=== PATIENT | male | born 1960 | race Caucasian/White ===

== ENCOUNTER 2017-03-25 11:10 | Observation (INO) | payer OTHER ==
[2017-03-25] MEDS ORDERED: ONDANSETRON 4 MG/2 ML VIAL IVP PRN (13:21)
[2017-03-25] MEDS ORDERED: ACETAMINOPHEN 325 MG TAB PO PRN (13:21)
[2017-03-25] MEDS ORDERED: ONDANSETRON DISINTEGRATING 4 MG TAB PO PRN (13:21)
[2017-03-25] MEDS ORDERED: diphenhydrAMINE 25 MG CAP PO ONE (13:37)
[2017-03-25] MEDS ORDERED: NS 1,000 ML IV ONE (13:37)
--- NOTE | 2017-03-25 14:09 | PDCARPN ---
Cardiology Progress Note Chief Complaint: SSS/ symptomatic bradycardia Assessment/Plan: Assessment: 56-y/o M direct admitted from our office for syncope/bradycardia/frequent PVCs. Has PMH of MV repair in 2010 (done in [place]), mod MR, mod-severe AR. #. symptomatic bradycardia/bradycardia/PVCs: scheduled for PPM in AM NPO after midnight but OK to talke meds #. VHD: followed by Dr. Dailey #. DVT ppx: low risk #. LOS: >48 hours/ pt being monitored for bradycardia; high risk for syncope Plan: PPM in AM 03/25/17 14:05 Subjective: No complaints. Reviewed/Discussed With: hospitalist Objective: Vital Signs (8 Hrs) Temp Pulse Resp BP Pulse Ox 03/25/17 12:01 98.6 F 56 L 18 127/86 H 95 Intake/Output (24 Hrs) 03/24/17 03/25/17 03/26/17 05:59 05:59 05:59 Other: Weight 88.5 kg ICD10 Worksheet Patient Problems: Problems Problem Status Onset Sick sinus syndrome Acute
--- NOTE | 2017-03-25 14:11 | CPEKG ---
Heart Rate: 92 RR Interval: 652 P-R Interval: 196 QRSD Interval: 98 QT Interval: 312 QTC Interval: 386 P [place]: 10 QRS [place]: 64 T Wave [place]: 65 EKG Severity - ABNORMAL ECG - EKG Impression: SINUS RHYTHM EKG Impression: VENTRICULAR BIGEMINY EKG Impression: BORDERLINE T ABNORMALITIES, ANT-LAT LEADS Electronically Signed By: Kalia Jenkins 25-Mar-2017 17:17:28
[2017-03-25 14:34] LABS: % IMMATURE GRANULYOCYTES 0.2 % (0.0-1.1); ABSOLUTE IMMATURE GRANULOCYTES 0.01 10^3/uL (0.00-0.10); ADD DIFF? NO; ADD MORPH? NO; ADD SCAN? NO; ATYPICAL LYMPHOCYTE FLAG 0 (0-99); FRAGMENT RBC FLAG 0 (0-99); HEMATOCRIT 41.6 % (40.0-51.0); HEMOGLOBIN 14.6 g/dL (13.7-17.5); LEFT SHIFT FLG 0 (0-99); LIPEMIA HEMOLYSIS FLAG 90 (0-99); MEAN CELL HEMOGLOBIN 32.1 pg (27.9-34.1); MEAN CELL HEMOGLOBIN CONCENTR. 35.1 g/dL (32.4-36.7); MEAN CELL VOLUME 91.4 fL (81.5-99.8); MEAN PLATELET VOLUME 10.7 fL (8.7-11.7); PLATELET CLUMPS FLAG 10 (0-99); PLATELET COUNT 172 10^3/uL (150-400); RED BLOOD CELL COUNT 4.55 10^6/uL (4.40-6.38); RED CELL DISTRIBUTION WIDTH 12.3 % (11.5-15.2)
[2017-03-25 14:39] LABS: INR 1.12 (0.83-1.16); PROTIME(PATIENT) 14.3 SEC (12.0-15.0)
[2017-03-25 14:44] LABS: ANION GAP 11 mEq/L (8-16); CALCIUM 9.3 mg/dL (8.5-10.4); CARBON DIOXIDE 22 mEq/l (22-31); CHLORIDE 107 mEq/L (97-110); CREATININE 0.8 mg/dL (0.7-1.3); GLOMERULAR FILTRATION RATE > 60; GLUCOSE 101 mg/dL (70-100); POTASSIUM 4.3 mEq/L (3.5-5.2); SODIUM 140 mEq/L (134-144)
[2017-03-25] MEDS: CARVEDILOL 6.25 MG TAB PO SCH (18:21)
[2017-03-25] MEDS: RANOLAZINE 500 MG TAB.ER PO SCH (21:17)
[2017-03-25] MEDS: traZODone 50 MG TAB PO SCH (21:18)
[2017-03-26] MEDS ORDERED: NS 1,000 ML IV ONE (06:00)
[2017-03-26] MEDS ORDERED: diphenhydrAMINE 25 MG CAP PO ONE (06:00)
[2017-03-26] MEDS ORDERED: DIAZEPAM 5 MG TAB PO ONE (08:00)
[2017-03-26] MEDS ORDERED: BACITRACIN IRRIGATION/NS 50,000 UNITS/1,000 ML BTL IRR ONE (08:00)
[2017-03-26] MEDS: CARVEDILOL 6.25 MG TAB PO SCH ×2 (09:03→17:51)
[2017-03-26] MEDS ORDERED: ceFAZolin 2 GM/DEXTROSE 100 ML IV ONE (10:00)
[2017-03-26] MEDS ORDERED: LIDOCAINE 1% 300 MG/30 ML SDV ONE ×2 (10:48→15:23)
[2017-03-26] MEDS ORDERED: fentaNYL 100 MCG/2 ML INJ ONE ×2 (10:48→11:45)
[2017-03-26] MEDS ORDERED: MIDAZOLAM 2 MG/2 ML VIAL ONE ×2 (10:49→11:45)
[2017-03-26] MEDS ORDERED: BUPIVACAINE 0.5% 30 ML SDV ONE (10:49)
[2017-03-26] MEDS ORDERED: IOPAMIDOL (ISOVUE-300) 100 ML BTL ONE (10:53)
--- NOTE | 2017-03-26 12:50 | CPEKG ---
Heart Rate: 55 RR Interval: 1091 P-R Interval: 212 QRSD Interval: 92 QT Interval: 452 QTC Interval: 433 P [place]: -15 QRS [place]: 64 T Wave [place]: 51 EKG Severity - ABNORMAL ECG - EKG Impression: SINUS RHYTHM EKG Impression: FIRST DEGREE AV BLOCK EKG Impression: FIRST DEGREE AVB IS NEW IN COMPARISON TO PRIOR Electronically Signed By: Kalia Jenkins 26-Mar-2017 13:27:01
[2017-03-26] MEDS: RANOLAZINE 500 MG TAB.ER PO SCH ×2 (14:09→21:27)
[2017-03-26] MEDS: FLUoxetine 20 MG CAP PO SCH (14:09)
[2017-03-26] MEDS: LISINOPRIL 2.5 MG TAB PO SCH (14:10)
--- NOTE | 2017-03-26 15:40 | EPPROC ---
Electrophysiology Procedure Note: PROCEDURE PERFORMED: 1. Implantation of an A/V Pacemaker 2. Subclavian vein angiography 3. Fluoroscopy INDICATION: Sick sinus syndrome Near syncope PROCEDURE NOTE: Patient presented to the cardiac catheterization laboratory in a fasting, post absorptive state . CCL RN administered sedation. The left infraclavicular area was prepped and draped in the usual sterile fashion. Lidocaine plus bupivacaine was used for local anesthesia. Left subclavian venography was performed by injection of iodinated contrast into the left antecubital vein. This was done to assure patency of the vein and also to assess for any anatomical aberrations. Using a combination of blunt and sharp dissection and electrocautery, the dissection was carried down to the prepectoral fascia. A pocket was made in this anatomical plane. All bleeding was controlled with electrocautery. The pocket was packed with gauze soaked in antibiotic solution. Fluoroscopy was utilized during the entire procedure for venous access and placement of the leads. Using a direct stick technique the left extrathoracic axillary vein was accessed with 2 sticks using the modified Seldinger technique. Placement of the guidewires into the venous system was confirmed by low-pressure blood return and also by visualizing the guidewires advancing into the inferior vena cava. A purse string suture was applied around the guidewires. Two #7 [place] sheaths were advanced under fluoroscopic guidance over the guidewire. An active fixation ventricular lead was advanced into the right ventricular apex and screwed in place. An active fixation atrial lead was advanced into the right atrial appendage and screwed in place. The peel away sheaths were removed. Pacing thresholds, sensing parameters and lead impedances were measured. There was no diaphragmatic stimulation at maximum output. The leads were sutured to the prepectoral fascia with 3 nonabsorbable sutures each. The pocket was again inspected for any bleeding. The leads were attached to the pacemaker securely. The pacemaker was inserted into the pocket and secured in place with a nonabsorbable suture. Fluoroscopy was performed in HO and HUNG[place]IAN planes to verify right-sided placement of the leads. Also fluoroscopy of the pacemaker pocket was performed. The pacemaker pocket was closed in 3 layers with absorbable monocryl sutures and betito. Appropriate dressing was applied. The patient left the cardiac catheterization laboratory in stable condition. Serial Numbers: 1. Device: Biotronik Edora 8DRT SN [id number] 2. Atrial Lead: Biotronik Solia S53 SN [id number] 3. Ventricular Lead: Biotronik Solia S60 SN [id number] Stimulation Thresholds & Impedance Measurements: 1. Atrial Lead P 5.1 mV 0.5 V 0.4 ms 526 ohm 2. Ventricular Lead R 4 MV 0.6 V 0.5 ms 604 ohm David Pacing Parameters 1. Pacing mode: DDDCLS 2. Lower rate: 50ppm 3. Upper tracking rate: 140 ppm 4. Upper sensor rate: 140 ppm Patient Problems: Problems Problem Status Onset Sick sinus syndrome Acute
[2017-03-26] MEDS: traZODone 50 MG TAB PO SCH (21:27)
[2017-03-27 03:46] VITALS: O2SAT 94
[2017-03-27 05:00] LABS: % IMMATURE GRANULYOCYTES 0.4 % (0.0-1.1); ABSOLUTE IMMATURE GRANULOCYTES 0.03 10^3/uL (0.00-0.10); ADD DIFF? NO; ADD MORPH? NO; ADD SCAN? NO; ATYPICAL LYMPHOCYTE FLAG 0 (0-99); FRAGMENT RBC FLAG 0 (0-99); HEMATOCRIT 41.1 % (40.0-51.0); HEMOGLOBIN 14.3 g/dL (13.7-17.5); LEFT SHIFT FLG 0 (0-99); LIPEMIA HEMOLYSIS FLAG 90 (0-99); MEAN CELL HEMOGLOBIN 32.1 pg (27.9-34.1); MEAN CELL HEMOGLOBIN CONCENTR. 34.8 g/dL (32.4-36.7); MEAN CELL VOLUME 92.2 fL (81.5-99.8); MEAN PLATELET VOLUME 10.8 fL (8.7-11.7); PLATELET CLUMPS FLAG 0 (0-99); PLATELET COUNT 149 10^3/uL (150-400); RED BLOOD CELL COUNT 4.46 10^6/uL (4.40-6.38); RED CELL DISTRIBUTION WIDTH 12.3 % (11.5-15.2)
[2017-03-27 05:24] LABS: ANION GAP 9 mEq/L (8-16); CALCIUM 9.1 mg/dL (8.5-10.4); CARBON DIOXIDE 25 mEq/l (22-31); CHLORIDE 104 mEq/L (97-110); CREATININE 0.9 mg/dL (0.7-1.3); GLOMERULAR FILTRATION RATE > 60; GLUCOSE 95 mg/dL (70-100); POTASSIUM 4.2 mEq/L (3.5-5.2); SODIUM 138 mEq/L (134-144)
--- NOTE | 2017-03-27 09:01 | CPEKG ---
Heart Rate: 71 RR Interval: 845 P-R Interval: 228 QRSD Interval: 100 QT Interval: 424 QTC Interval: 461 QRS [place]: 75 T Wave [place]: 73 EKG Severity - ABNORMAL ECG - EKG Impression: ATRIAL-PACED COMPLEXES EKG Impression: VENTRICULAR PREMATURE COMPLEX EKG Impression: FIRST DEGREE AV BLOCK Electronically Signed By: Solis Cramer 27-Mar-2017 13:31:50
[2017-03-27] MEDS: CARVEDILOL 6.25 MG TAB PO SCH (09:13)
[2017-03-27] MEDS: FLUoxetine 20 MG CAP PO SCH (09:14)
[2017-03-27] MEDS: RANOLAZINE 500 MG TAB.ER PO SCH (09:14)
[2017-03-27] MEDS: LISINOPRIL 2.5 MG TAB PO SCH (09:14)
[2017-03-27 11:26] VITALS: BP 115/82; PULSE 51; RESP 16; TEMP 98.3
--- NOTE | 2017-03-27 15:26 | GDS ---
[f rep st] DISCHARGE SUMMARY DISCHARGE DIAGNOSES: 1. Symptomatic bradycardia with frequent PVCs status post permanent pacemaker. 2. Recent episode of syncope. 3. Known valvular heart disease with previous MV repair in 2010, and now moderate mitral regurgitation and moderate to severe aortic regurgitation. PROCEDURES: 1. Serial chest x-rays. 2. On 03/26/2017, permanent pacemaker placement with a Biotronik dual-chamber device. 3. On 03/27/2017, chest CT for nodule noted on chest x-ray. This shows a benign-appearing 4.5 mm nodule in the right upper lobe. This is not suspicious for malignancy. HISTORY OF PRESENT ILLNESS: Please see the dictated H and P from our office for complete details. In brief, the patient is a 56-year-old male with a past medical history of MV repair in 2010, moderate mitral regurgitation and moderate to severe aortic regurgitation, who presented to the office after having worsening episodes of lightheadedness. He reports an overt syncopal episode on Saturday. He was noted to have frequent PVCs on his EKG. Options were reviewed and the patient was agreeable to permanent pacemaker placement for treatment of syncope and bradycardia. HOSPITAL COURSE BY PROBLEM: 1. Bradycardia. He has proceeded to permanent pacemaker placement. 2. PVCs. His base rate on his pacemaker will be increased to 70 and his beta mervin will be increased to try to suppress his PVCs. 3. Right upper lung lobe nodule on chest x-ray. A followup CT shows that the nodule appears benign. Physical exam: On the day of discharge, blood pressure 115/82, heart rate 51, respirations 16, O2 saturation 94% on room air, temp of 98.3. In general, he is a very pleasant male in no apparent distress. Eyes are PERRL. Heart regular rate and rhythm. Left pectoral region pacer without significant ecchymosis. CBC on the day of discharge, WBC 7.12, hemoglobin 14.3, hematocrit 41.1, platelet count 149. BMP with sodium 138, potassium 4.2, chloride 104, CO2 of 25 , BUN 16, creatinine 0.9, glucose 95. DIET: He may resume his previous diet. ACTIVITY: Precautions were reviewed. DISCHARGE MEDICATIONS: Please see med reconciliation. He may continue his testosterone, lisinopril, Ranexa, trazodone and Prozac. His carvedilol dose has been increased to 25 p.o. twice daily. He may take Tylenol as needed for pain. FOLLOWUP INSTRUCTIONS: 1. Arm precautions. 2. Follow up in Device [facility] in 1 week's time. 3. Follow up with Dr. Cramer as scheduled. Please note that greater than 30 minutes was spent on discharge and coordination of care. /[id number]/MODL MTDD
== END 2017-03-27 15:15 | disposition home or self-care (01) ==
LOC: F2W 11:49 → INTOOBSV 13:36 → OBSVTOIN 13:36
PROVIDERS: ADMIT Internal Medicine Cardiovascular Disease; ATTEND Internal Medicine Cardiovascular Disease
PROC: 02HK3JZ Insertion of Pacemaker Lead into Right Ventricle, Percutaneous Approach (ICD-10-PCS; principal; 2017-03-25)
PROC: 0JH606Z Insertion of Pacemaker, Dual Chamber into Chest Subcutaneous Tissue and Fascia, Open Approach (ICD-10-PCS; principal; 2017-03-25)
PROC: 02H63JZ Insertion of Pacemaker Lead into Right Atrium, Percutaneous Approach (ICD-10-PCS; principal; 2017-03-25)
PROC: B5171ZA Fluoroscopy of Left Subclavian Vein using Low Osmolar Contrast, Guidance (ICD-10-PCS; principal; 2017-03-25)
DX: I49.5 Sick sinus syndrome (principal); I08.0 Rheumatic disorders of both mitral and aortic valves; R91.1 Solitary pulmonary nodule
CPT/HCPCS: 33208; 71010; 71020; 71250; 93005; G0378; C1785; C1898; J0690; J2250; J3010; Q9967

== ENCOUNTER → 2017-04-03 | Outpatient (CLI) | payer OTHER | LOC: FIMAGING 12:35 | PROVIDERS: ATTEND Nurse Practitioner Adult Health | DX: T82.110A Breakdown (mechanical) of cardiac electrode, initial encounter (principal) ==

== ENCOUNTER 2017-04-04 06:30 | Observation (INO) | payer OTHER ==
[2017-04-04] MEDS ORDERED: BACITRACIN IRRIGATION/NS 50,000 UNITS/1,000 ML BTL IRR ONE (06:35)
[2017-04-04] MEDS ORDERED: DIAZEPAM 5 MG TAB PO ONE (06:35)
[2017-04-04] MEDS ORDERED: NS 1,000 ML IV ONE (06:35)
[2017-04-04] MEDS ORDERED: ceFAZolin 2 GM/DEXTROSE 100 ML IV ONE (06:35)
[2017-04-04] MEDS ORDERED: diphenhydrAMINE 25 MG CAP PO ONE (06:35)
--- NOTE | 2017-04-04 06:51 | CPEKG ---
Heart Rate: 89 RR Interval: 674 P-R Interval: 224 QRSD Interval: 102 QT Interval: 416 QTC Interval: 507 P [place]: -14 QRS [place]: 70 T Wave [place]: 35 EKG Severity - ABNORMAL ECG - EKG Impression: ATRIAL-PACED COMPLEXES EKG Impression: PAIRED VENTRICULAR PREMATURE COMPLEXES EKG Impression: FIRST DEGREE AV BLOCK EKG Impression: MINIMAL ST ELEVATION, INFERIOR LEADS Electronically Signed By: Valentino Morin 04-Apr-2017 16:09:52
[2017-04-04 07:15] LABS: % IMMATURE GRANULYOCYTES 0.2 % (0.0-1.1); ABSOLUTE IMMATURE GRANULOCYTES 0.01 10^3/uL (0.00-0.10); ADD DIFF? NO; ADD MORPH? NO; ADD SCAN? NO; ATYPICAL LYMPHOCYTE FLAG 0 (0-99); FRAGMENT RBC FLAG 0 (0-99); HEMATOCRIT 40.4 % (40.0-51.0); HEMOGLOBIN 14.4 g/dL (13.7-17.5); LEFT SHIFT FLG 0 (0-99); LIPEMIA HEMOLYSIS FLAG 90 (0-99); MEAN CELL HEMOGLOBIN 32.3 pg (27.9-34.1); MEAN CELL HEMOGLOBIN CONCENTR. 35.6 g/dL (32.4-36.7); MEAN CELL VOLUME 90.6 fL (81.5-99.8); PLATELET CLUMPS FLAG 10 (0-99); PLATELET COUNT 152 10^3/uL (150-400); RED BLOOD CELL COUNT 4.46 10^6/uL (4.40-6.38); RED CELL DISTRIBUTION WIDTH 11.8 % (11.5-15.2)
[2017-04-04 07:28] LABS: ANION GAP 10 mEq/L (8-16); CALCIUM 9.2 mg/dL (8.5-10.4); CARBON DIOXIDE 25 mEq/l (22-31); CHLORIDE 107 mEq/L (97-110); CREATININE 0.7 mg/dL (0.7-1.3); GLOMERULAR FILTRATION RATE > 60; GLUCOSE 115 mg/dL (70-100); SODIUM 142 mEq/L (134-144)
[2017-04-04 07:44] LABS: INR 1.1 (0.83-1.16); PROTIME(PATIENT) 14.1 SEC (12.0-15.0)
[2017-04-04] MEDS ORDERED: fentaNYL 100 MCG/2 ML INJ ONE (08:10)
[2017-04-04] MEDS ORDERED: BUPIVACAINE 0.5% 30 ML SDV ONE (08:10)
[2017-04-04] MEDS ORDERED: LIDOCAINE 1% 300 MG/30 ML SDV ONE (08:10)
[2017-04-04] MEDS ORDERED: MIDAZOLAM 2 MG/2 ML VIAL ONE ×3 (08:10→09:41)
[2017-04-04] MEDS ORDERED: LIDO/EPI 1% **for epidural** 30 ML SDV ONE (08:11)
[2017-04-04] MEDS: ACETAMINOPHEN 325 MG TAB PO PRN (15:09)
[2017-04-04] MEDS: OXYCODONE/APAP 5/325 TAB PO PRN (18:27)
[2017-04-04] MEDS ORDERED: NON-FORMULARY NEW DRUG (Ranolazine [Ranexa] 1,000 MG) PO SCH (21:00)
[2017-04-04] MEDS ORDERED: LISINOPRIL 2.5 MG TAB PO SCH (21:00)
[2017-04-04] MEDS ORDERED: traZODone 50 MG TAB PO SCH (21:00)
[2017-04-04] MEDS: RANOLAZINE 500 MG TAB.ER PO SCH (21:35)
[2017-04-04] MEDS: CARVEDILOL 25 MG TAB PO SCH (21:37)
[2017-04-05] MEDS: OXYCODONE/APAP 5/325 TAB PO PRN (04:08)
[2017-04-05 04:38] VITALS: BP 106/66
[2017-04-05 05:21] LABS: % IMMATURE GRANULYOCYTES 0.3 % (0.0-1.1); ABSOLUTE IMMATURE GRANULOCYTES 0.02 10^3/uL (0.00-0.10); ADD DIFF? NO; ADD MORPH? NO; ADD SCAN? NO; ATYPICAL LYMPHOCYTE FLAG 0 (0-99); FRAGMENT RBC FLAG 0 (0-99); HEMATOCRIT 40.6 % (40.0-51.0); HEMOGLOBIN 14.4 g/dL (13.7-17.5); LEFT SHIFT FLG 0 (0-99); LIPEMIA HEMOLYSIS FLAG 90 (0-99); MEAN CELL HEMOGLOBIN 32.5 pg (27.9-34.1); MEAN CELL HEMOGLOBIN CONCENTR. 35.5 g/dL (32.4-36.7); MEAN CELL VOLUME 91.6 fL (81.5-99.8); MEAN PLATELET VOLUME 10.5 fL (8.7-11.7); PLATELET CLUMPS FLAG 0 (0-99); PLATELET COUNT 156 10^3/uL (150-400); RED BLOOD CELL COUNT 4.43 10^6/uL (4.40-6.38); RED CELL DISTRIBUTION WIDTH 11.9 % (11.5-15.2)
[2017-04-05 05:35] LABS: ANION GAP 10 mEq/L (8-16); CARBON DIOXIDE 24 mEq/l (22-31); CHLORIDE 104 mEq/L (97-110); CREATININE 0.8 mg/dL (0.7-1.3); GLOMERULAR FILTRATION RATE > 60; GLUCOSE 102 mg/dL (70-100); POTASSIUM 3.8 mEq/L (3.5-5.2); SODIUM 138 mEq/L (134-144)
[2017-04-05] MEDS ORDERED: FLUoxetine 20 MG CAP PO SCH (09:00)
--- NOTE | 2017-04-05 09:01 | CPEKG ---
Heart Rate: 82 RR Interval: 732 P-R Interval: 226 QRSD Interval: 90 QT Interval: 388 QTC Interval: 453 P [place]: 58 QRS [place]: 65 T Wave [place]: 13 EKG Severity - ABNORMAL ECG - EKG Impression: ATRIAL-PACED COMPLEXES EKG Impression: MULTIPLE VENTRICULAR PREMATURE COMPLEXES EKG Impression: FIRST DEGREE AV BLOCK Electronically Signed By: Moe Duckworth 08-Apr-2017 10:24:48
[2017-04-05 09:23] VITALS: PULSE 74; RESP 12; TEMP 98.2; O2SAT 98
[2017-04-05] MEDS: RANOLAZINE 500 MG TAB.ER PO SCH (09:42)
[2017-04-05] MEDS: CARVEDILOL 25 MG TAB PO SCH (09:42)
[2017-04-05] MEDS: ACETAMINOPHEN 325 MG TAB PO PRN (09:42)
--- NOTE | 2017-04-05 11:28 | GDS ---
[f rep st] DISCHARGE SUMMARY ADMITTING DIAGNOSES: 1. Symptomatic bradycardia with frequent PVCs, with recent permanent pacemaker implantation. 2. RV lead dislodgement. 3. Recent episodes of syncope. 4. Known heart valve disease, with previous mitral valve repair in 2010, now moderate mitral regurgitation and moderate to severe aortic regurgitation. DISCHARGE DIAGNOSES: Symptomatic bradycardia with frequent PVCs, status post PPM implantation, and RV lead revision. Recent episode. Known Valvular heart disease with previous mitral valve repair, and now moderate MR and moderate to severe AI. PROCEDURES DONE DURING HOSPITALIZATION: 1. Electrocardiogram. 2. Chest x-ray. 3. RV lead revision. HISTORY OF PRESENT ILLNESS: Please see H and P. The patient is a 56-year-old male with known history of valvular heart disease, he has been known to be symptomatic with bradycardia, with frequent PVCs, and he had a recent episode of syncope. He underwent a permanent pacemaker implantation on March 26, dual chamber Biotronik device. He was seen in the office last week, and it was noted that he had significant high RV lead impedances, chest x-ray was done showing the lead had moved, and was no longer in an optimal setting in his right ventricle. The patient was scheduled to undergo elective RV lead revision with Dr. Huerta. HOSPITAL COURSE: Patient was admitted through CVC, prepped for procedure, and taken to the cardiac catheterization lab. There, Dr. Huerta successfully remanipulated the RV lead, thresholds were taken by Biotronik rep, with good impedances. No complications. Patient was transferred back to CVC, and ultimately to the PCU for overnight. He reports since being in PCU overnight, he has had no chest pain or shortness of breath. He has been up and walking the unit without any difficulties. Continuous cardiac monitoring shows AV paced with occasional premature ventricular contraction. He denies any chest pressure or pain. PHYSICAL EXAMINATION DONE TODAY: GENERAL APPEARANCE: A medium built, well- groomed, male. He is alert and oriented to person, place, time, situation. Appears to be under no acute distress. CURRENT VITAL SIGNS: Blood pressure 106/66, heart rate 74, AV paced on monitor, respirations 12, saturating 98% on room air. Temperature 36.8 degrees Celsius. HEENT: Head is normocephalic. Lips and tongue are pink and moist with no signs of cyanosis. Conjunctivae pink. NECK: Trachea is midline, +2 carotid pulses bilateral. No auscultated bruits, no jugular vein distention. RESPIRATORY: Lungs clear to auscultation. No rhonchi, rales or wheezes. No accessory muscle use, no intercostal muscle retraction noted. CARDIAC: Regular rate, regular rhythm, S1 , S2, a 2/6 systolic murmur noted along the right upper sternal border. ABDOMEN : Soft, nontender, bowel sounds x4 quadrants, no organomegaly, no palpable masses. SKIN: [place], warm, dry, no cyanosis, no clubbing, no peripheral edema. VASCULAR: +2 carotids bilateral, +2 radials bilateral, +2 posterior tibial and dorsal pedal pulses bilateral. CHEST: Pacemaker insertion site, left anterior chest just distal to clavicle, incision intact with Steri-Strips, no redness, swelling, drainage, ecchymosis or hematoma noted. Dressing change done at this time. LABORATORY STUDIES: Drawn today show WBC of 7.38, hemoglobin of 14.4, hematocrit 40.6, platelet count of 156. Sodium 138, potassium 3.8, chloride 104 , CO2 24, BUN 14, creatinine 0.8, glucose 102, calcium 9.0. STUDIES: RV lead revision as above, this morning's electrocardiogram showed atrial paced with multiple premature ventricular contractions. Chest x-ray done this morning showed no pneumothorax, no acute cardiopulmonary process. [employer] rep did interrogate device today, showing excellent thresholds. DISCHARGE DISPOSITION: Patient will be discharged home in stable condition. He is under activity restrictions of not lifting left arm higher than shoulder height for the next week, and not lifting more than 5 pounds with left arm. He is to use shoulder immobilizer for the next 48 hours, and then p.r.n. for the next 6 weeks. DISCHARGE MEDICATIONS: Please see discharge medication reconciliation sheet, note due to the pain of incisional site, he has been sent home with a prescription of oxycodone, precautions have been given with him to not use alcohol, drugs, or drive with medication. He is not to over cross with Tylenol. DISCHARGE INSTRUCTIONS: Post pacemaker discharge instructions and lead revisions discharge instructions went over with the patient, including monitoring for signs of infection, activity restriction, medication compliance, pain management, and followup. Patient had a device check set for 1 weeks time at our [place] office, and he is to follow up with Dr. Cramer on April 26. At the time of discharge, patient verbalizes understanding of all discharge instructions, and has no questions or concerns. He was told that if any problems or concerns post discharge, he is to call our office or return to the hospital. Total time spent on discharge greater than 30 minutes. /[id number]/MODL MTDD
--- NOTE | 2017-04-05 15:07 | EPPROC ---
Electrophysiology Procedure Note: PROCEDURE PERFORMED: 1. RV lead revision INDICATION: RV lead dislodgement with no sensing or capture PROCEDURE NOTE: Patient presented to the cardiac catheterization laboratory in a fasting, postabsorptive state. Moderate sedation administered. The left infraclavicular area was prepped and draped in the usual sterile fashion. Lidocaine plus bupivacaine was used for local anesthesia. Using a combination of blunt and sharp dissection and electrocautery, the dissection was carried down to the prepectoral fascia and the existing pacemaker pocket was opened. RV lead was disconnected. Sutures were cut. Stylet placed. RV lead repositioned with addition of a lot of slack. The lead was sutured to the muscle using 0 silk. Lead positioned in the pacemaker generator. The pacemaker pocket was copiously irrigated with antibiotic solution. The pocket was again inspected for any bleeding. The leads were attached to the pacemaker securely. The pacemaker was inserted into the pocket and secured in place with a nonabsorbable suture. The pacemaker pocket was closed in 3 layers with absorbable monocryl sutures. Appropriate dressing was applied. The patient left the cardiac catheterization laboratory in stable condition. Serial Numbers: 1. Device Biotronik Edora 8 SN [id number] 2. Atrial Lead Biotronik Solia S53 SN [id number] 3. Ventricular Lead Biotronik Solia S60 SN [id number] Stimulation Thresholds & Impedance Measurements: 1. Atrial Lead 5.1mV, 0.9@0.4ms, 468Ohms 2. Ventricular Lead 13.1mV, 0.5@0.4ms, 702Ohms David Pacing Parameters 1. Pacing mode DDD CLS 2. Lower rate 60 3. Upper tracking rate 130 4. Upper sensor rate 130 Patient Problems: Problems Problem Status Onset Sick sinus syndrome Acute
[2017-04-13] MEDS ORDERED: TESTOSTERONE IM 100 MG/ML SYRINGE IM SCH (11:00)
== END 2017-04-05 10:54 | disposition home or self-care (01) ==
LOC: FCATH 06:30 → F2W 10:02
PROVIDERS: ADMIT Internal Medicine Cardiovascular Disease; ATTEND Internal Medicine Cardiovascular Disease
PROC: 02WA0MZ Revision of Cardiac Lead in Heart, Open Approach (ICD-10-PCS; principal; 2017-04-04)
DX: T82.120A Displacement of cardiac electrode, initial encounter (principal); I49.3 Ventricular premature depolarization; R55 Syncope and collapse; I08.0 Rheumatic disorders of both mitral and aortic valves; Z95.2 Presence of prosthetic heart valve; Z85.820 Personal history of malignant melanoma of skin
CPT/HCPCS: 33215; 71020; 93005; G0378; J0690; J2250; J3010